=== PATIENT | male | born 1950 | race Caucasian/White ===

== ENCOUNTER → 2020-06-27 09:29 | Outpatient (CLI) | payer OTHER, SELFPAY ==
--- NOTE | 2020-06-27 09:40 | RAD_ITS ---
STUDY: X-RAY - RIGHT TIBIA AND FIBULA REASON FOR EXAM: Male, 69 years old. FRACTURE TECHNIQUE: 4 view(s) of the tibia and fibula were obtained. COMPARISON: None. FINDINGS: No acute fracture, dislocation or osseous destruction. Achilles enthesophyte. Moderate patellofemoral arthrosis. Mild soft tissue swelling. RAD/Tibia & Fibula 2 Views IMPRESSION: Right tibia/fibula intact Achilles enthesophyte Mild soft tissue swelling Electronically Signed: Elías Rodriguez DO at 9:27 EDT Tel , Service support ,
== END ==
PROVIDERS: PCP Orthopaedic Surgery; Referring Provider Orthopaedic Surgery; Visit Provider Orthopaedic Surgery
DX: S82.201A Unspecified fracture of shaft of right tibia, initial encounter for closed fracture (principal)
CPT/HCPCS: 73590

== ENCOUNTER → 2021-01-31 14:03 | Outpatient (CLI) | payer OTHER, SELFPAY ==
--- NOTE | 2021-01-31 14:20 | CT_ITS ---
STUDY: CT CHEST WITHOUT CONTRAST REASON FOR EXAM: Male, 70 years old. PULMONARY NODULES RADIATION DOSAGE (If Supplied By Facility): CTDIvol = ( 19.60 ) mGy, DLP = ( 788.43 ) mGycm TECHNIQUE: Transaxial imaging was performed without the administration of intravenous contrast material. Multiplanar coronal and sagittal images were reformatted. Individualized dose optimization techniques were used for this CT. COMPARISON: None. FINDINGS: Small benign appearing bilateral axillary lymph nodes. Mild increased markings in the anterior aspect of the right middle lobe suggestive of linear scarring. There is a partially calcified 5.3 mm pleural-based nodule in the superior segment of the right lower lobe suggestive of a partially calcified granuloma. There is also evidence of a 6.7 mm noncalcified nodule in the right middle lobe as seen on axial image #84. Mild linear scarring in the lateral aspect of the left lower lobe. A calcified granuloma is seen in the posterior segment of the left lower lobe. There is no demonstrated pleural abnormality. There are calcifications of the coronary arteries. There are multiple small lymph nodes within the mediastinum, which are normal in size and morphology most compatible with reactive lymph hyperplasia. There is evidence of calcified left hilar lymph nodes. Normal unenhanced pulmonary arteries. There is atherosclerotic calcification of the aortic arch . There are multi-level degenerative changes of the thoracic spine. Fatty infiltration of the liver. Calcified splenic granulomas. CT/Chest without Contrast IMPRESSION: Calcified granulomas as well as tiny noncalcified nodules as described. A 6 month follow-up examination is recommended for further evaluation. Electronically Signed: Miles Ortiz MD at 15:19 EDT , Service support ,
== END ==
PROVIDERS: PCP Orthopaedic Surgery
DX: R91.8 Other nonspecific abnormal finding of lung field (principal)
CPT/HCPCS: 71250